=== PATIENT | female | born 1980 | race African-American/Black ===

== ENCOUNTER 2023-03-05 01:08 | Emergency (ER) | payer BC ==
[~2023-03-05] VITALS: Ht 177.8 cm; Wt 98.0 kg
[2023-03-05] MEDS ORDERED: ALBUTEROL (0.083%) 2.5MG/3ML NEB HHN STA (01:09)
[2023-03-05] MEDS ORDERED: IPRATROPIUM BROMIDE (0.02%) 0.5MG/2.5ML NEB HHN STA (01:09)
[2023-03-05] MEDS ORDERED: PREDNISONE 20MG TABLET PO STA (01:09)
[2023-03-05] MEDS ORDERED: SODIUM CHLORIDE 0.9% 1,000 ML IV ONE (01:15)
[2023-03-05] MEDS ORDERED: NALOXONE HCL 0.4 MG/ML 1ML VIAL IV ONE (01:15)
[2023-03-05 01:44] LABS: BASOPHILS % 1.3 % (0.0-2.0); DIFFERENTIAL COMMENT 0; EOSINOPHILS % 1.1 % (0.0-5.0); HEMATOCRIT. 27.8 % (36.0-48.0); HEMOGLOBIN. 8.1 g/dL (12.0-16.0); LYMPHOCYTES % 42.7 % (20.0-50.0); MEAN CORPUSCULAR HEMOGLOBIN 20.9 pg (28.0-32.0); MEAN CORPUSCULAR HGB CONC 29.2 g/dL (31.0-37.0); MEAN CORPUSCULAR VOLUME 71.6 fL (81.0-99.0); MONOCYTES % 4.9 % (2.0-8.0); PLATELET 311 x1000/uL (130-400); RED BLOOD CELL COUNT 3.88 mill/uL (4.2-5.4)
[2023-03-05 01:52] LABS: CHLORIDE 107 mEq/L (98-107); POTASSIUM 3.8 mEq/L (3.5-5.1); SODIUM 138 mEq/L (136-145)
[2023-03-05 02:00] LABS: ALANINE AMINOTRANSFERASE 37 IU/L (13-61); ALBUMIN 3.5 g/dL (3.4-5.0); ASPARTATE AMINOTRANSFERASE 58 IU/L (15-37); BILIRUBIN TOTAL 0.1 mg/dL (0.1-1.0); CALCIUM 8.5 mg/dL (8.5-10.1); CARBON DIOXIDE 20 mEq/L (21-32); CREATININE 1.1 mg/dL (0.6-1.3); ETHANOL BLOOD < 10 mg/dL (<10); GLUCOSE 218 mg/dL (70-105); NT PRO B-TYPE NATRIURETIC PEP 54 pg/mL (5-125); PROTEIN TOTAL 7.7 g/dL (6.0-8.3); TROPONIN I HIGH SENSITIVITY 9 ng/L (<54); UREA NITROGEN BLOOD 16 mg/dL (7-21)
[2023-03-05] MEDS ORDERED: LORAZEPAM 2MG/ML CPJ IV NR (02:39)
[2023-03-05 02:40] VITALS: PULSE 109; RESP 22; O2SAT 97
[2023-03-05] MEDS ORDERED: NALOXONE HCL 0.4 MG/ML 1ML VIAL IV NR (04:30)
[2023-03-05] MEDS ORDERED: PREDNISONE 20MG TABLET PO NR (04:30)
[2023-03-05 06:49] LABS: TROPONIN I HIGH SENSITIVITY 24 ng/L (<54)
[2023-03-05 09:43] LABS: *AMPHETAMINES SCREEN URINE NEGATIVE (NEGATIVE); *BARBITURATES SCREEN URINE NEGATIVE (NEGATIVE); *BENZODIAZEPINES SCREEN URINE NEGATIVE (NEGATIVE); *COCAINE SCREEN URINE NEGATIVE (NEGATIVE); ECSTASY MDMA SCREEN URINE NEGATIVE (NEGATIVE); OPIATES URINE SCREEN NEGATIVE (NEGATIVE); PHENCYCLIDINE URINE SCREEN NEGATIVE (NEGATIVE)
[2023-03-05 10:03] VITALS: BP 132/78; PULSE 98; RESP 16; TEMP 98.9
[2023-03-05 10:06] LABS: CANNABINOID URINE SCREEN PRESUMTIVE POSITIVE (NEGATIVE)
== END 2023-03-05 10:11 | disposition home or self-care (01) ==
LOC: ER 01:08
DX: J45.901 Unspecified asthma with (acute) exacerbation (principal); F41.9 Anxiety disorder, unspecified
CPT/HCPCS: 94640; 80053; 80305; 80320; 83880; 83690; 85025; 84484; 36415; 71045; 93005; 96361; 96374; 99291; Z7610 ×6; J7512; J2060; J7030; G0480